=== PATIENT | male | born 1965 | race Caucasian/White ===

== ENCOUNTER → 2023-02-04 09:52 | Outpatient (CLI) | payer OTHER, SELFPAY ==
--- NOTE | 2023-02-04 | CA_ITS ---
FINAL REPORT CLINICAL HISTORY: bilateral edema, redness of bilateral lower legs with leathery flesh. Smoker, trophic nails, family hx-PAD, morbid obesity COMPARISON: None FINDINGS: DUPLEX VENOUS SONOGRAPHY OF THE BILATERAL LOWER EXTREMITIES Multiple transverse and longitudinal scans were performed of the femoropopliteal deep venous systems, with augmentation and compression maneuvers. HISTORY: Pain FINDINGS: Normal phasic flow was noted in the visualized deep venous systems. No intraluminal increased echogenicity is noted to suggest thrombus. There is normal compression and augmentation of the venous structures. No abnormal venous collaterals are seen. IMPRESSION: No evidence of deep venous thrombosis of the bilateral lower extremities. Reviewed, Interpreted and Dictated by Monica Edmond MD Transcribed by Cathi Casarez Authenticated and [facility]
== END ==
PROVIDERS: PCP Nurse Practitioner Family; Visit Provider Nurse Practitioner Family
DX: I87.2 Venous insufficiency (chronic) (peripheral) (principal)
CPT/HCPCS: 93970

== ENCOUNTER → 2023-07-03 12:22 | Outpatient (CLI) | payer OTHER, SELFPAY ==
--- NOTE | 2023-07-03 12:43 | XR_ITS ---
FINAL REPORT TECHNIQUE: Chest PA & Lateral CLINICAL HISTORY: smoker, dyspnea COMPARISON: None FINDINGS: 2 views of the chest were performed. The heart size is normal. The mediastinum is within normal limits. There is no acute cardiopulmonary process. There are no pleural effusions. There is no pneumothorax. The bony thorax appears intact. IMPRESSION: No acute cardiopulmonary process. Reviewed, Interpreted and Dictated by Ervin Guaman MD Transcribed by Rebecca Lopez Authenticated and [facility]
[2023-07-03 13:19] LABS: Basophils % 0.6 % (0.1-2.0); Eosinophils # 0.2 K/mm3 (0.0-0.4); Eosinophils % 3.1 % (0.1-12.0); Hematocrit 51.9 % (42.0-52.0); Hemoglobin 17.6 g/dL (14.1-18.0); Lymphocytes # 1.6 K/mm3 (0.7-4.5); Lymphocytes % 21.1 % (10-50); Mean Corpuscular Hemoglobin 31.7 pg (27.0-31.2); Mean Corpuscular Volume 93.2 fl (80-94); Mean Platelet Volume 10.1 fl (7.4-10.4); Monocytes # 0.4 K/mm3 (0.1-1.0); Monocytes % 5.8 % (1.7-9.3); Neutrophils # 5.3 K/mm3 (1.8-7.8); Neutrophils % 69.5 % (37.0-80.0); Platelet Count 129 K/mm3 (142-424); Red Blood Count 5.57 M/mm3 (4.60-6.20); Red Cell Distribution Width 14.3 % (11.5-17.5); White Blood Count 7.6 K/mm3 (4.8-10.8)
[2023-07-03 13:48] LABS: Alanine Aminotransferase 29 U/L (12-78); Albumin Level 4.1 g/dl (3.5-5.0); Alkaline Phosphatase 83 U/L (38-126); Aspartate Amino Transferase 28 U/L (17-59); Bilirubin,Direct 0.1 mg/dl (0.0-0.4); Bilirubin,Indirect 0.4 mg/dL (0.0-0.9); Bilirubin,Total 0.5 mg/dl (0.2-1.3); Bilirubin,Unconjugated 0.4 mg/dL (0.0-1.1); Blood Urea Nitrogen 10 mg/dl (9-20); Calcium 8.6 mg/dl (8.4-10.2); Chloride 102 mmol/L (98-107); Cholesterol 213 mg/dl (140-200); Estimated Glomerular Filt Rate 99 ml/min (>60); GFR (African American) 119 ML/MIN (>60); Glucose 81 mg/dl (74-100); Magnesium 1.8 mg/dl (1.6-2.3); Total Protein,Serum 7.4 g/dl (6.3-8.2); Triglycerides 171 mg/dl (30-150); VLDL Cholesterol 34 mg/dL (0-40)
[2023-07-03 13:50] LABS: Chol/HDL Ratio 5.6 (1-3.5); HDL Cholesterol 38 mg/dl (40-60); Potassium 4.4 mmoL/L (3.5-5.1); Sodium 136 mmol/L (136-145)
[2023-07-03 14:00] LABS: Direct LDL Cholesterol 145.52 mg/dL (100-129)
[2023-07-03 14:05] LABS: Free T4 (Free Thyroxine) 0.97 ng/dl (0.78-2.19)
[2023-07-03 14:06] LABS: 25-OH Vitamin D, Total 27.4 ng/mL (30-100)
[2023-07-03 14:20] LABS: Prostate Specific Ag Screen 0.4 ng/ml (0.0-4.0); Thyroid Stimulating Hormone 1.88 uIU/mL (0.465-4.68)
[2023-07-03 14:44] LABS: Anion Gap 9.4 mEq/L (5-15); Carbon Dioxide 29 mmol/L (22.0-30.0)
== END ==
PROVIDERS: PCP Nurse Practitioner Family; Visit Provider Internal Medicine
DX: I27.20 Pulmonary hypertension, unspecified (principal); I73.9 Peripheral vascular disease, unspecified; I87.2 Venous insufficiency (chronic) (peripheral); R06.00 Dyspnea, unspecified; R06.83 Snoring; Z12.5 Encounter for screening for malignant neoplasm of prostate; E55.9 Vitamin D deficiency, unspecified; Z68.41 Body mass index [BMI] 40.0-44.9, adult; F17.200 Nicotine dependence, unspecified, uncomplicated
CPT/HCPCS: 36415; 71046; 80048; 80061; 80076; 82306; 83735; 84439; 84443; 85025; G0103

== ENCOUNTER → 2023-07-15 11:01 | Outpatient (CLI) | payer OTHER, SELFPAY ==
--- NOTE | 2023-07-15 | CA_ITS ---
APPROVED REPORT Exam: Pharmacologic Technologist: Isabell Pelayo, Ht: 5 ft 10 in Wt: 323 lbs BSA: 2.56 m2 HR: 74 bpm BP: 111/70 mmHg Rhythm: NSR, RIGHT AXIS DEVIATION, POOR R WAVE Medical History Medications: SpirOnolactone,,,,, Furosemide,,,,, Allergies: No known drug allergies Stress Test Details Test: LEXISCAN HR Resting HR: 69 bpm Max Heart Rate (APMHR): 160 bpm Max HR Achieved: 90 bpm Target HR (85% APMHR): 136 bpm % of APMHR: 56 Recovery HR: 79 bpm BP Resting BP: 111/70 mmHg Max BP: 130/64 mmHg Recovery BP: 130.0/70.0 mmHg ECG Resting ECG: NSR, RIGHT AXIS DEVIATION, DELAYED R/S TRANSITION Stress ECG: NO SIGNIFICANT ST CHANGES Arrhythmia: NONE Clinical Exercise duration: 04:06 min Highest Stage Achieved: Stress ECG Conclusion PT HAD MILD SOA, HEAD AND STOMACH DISCOMFORT NO SIGNIFICANT ST CHANGES CONCLUSION: UNREMARKABLE LEXISCAN STRESS MYOVIEW IMAGES REPORTED SEPARATELY Test Summary REST 03:50 . . 69 . 111/ 70 . . Stage 1 01:00 . . 83 . . . . Stage 2 01:00 . . 85 . 112/ 64 . . Stage 3 01:00 . . 80 . . . . Stage 4 01:00 . . 78 . 130/ 64 . . Stage 4 01:06 . . 78 . 130/ 64 . Stop exercise at 04:06 RECOVERY 01:00 . . 82 . . . . RECOVERY 02:00 . . 79 . 126/ 71 . . RECOVERY 03:00 . . 79 . 130/ 70 . . RECOVERY 03:24 . . 79 . 130/ 70 . . Electronically signed by : Bonnie Gannon MD 07/16/2023 09:21:42
--- NOTE | 2023-07-15 11:01 | NM_ITS ---
APPROVED REPORT Exam: Nuclear Stress Test Indication: fatigue..high cholesterol..tobacco use Patient Location: Outpatient Stress Tech: Isabell Pelayo PA Tech:Dee Leon HUMZA RT(R)(N) Ht: 6 ft 0 in Wt: 323 lbs HR: 69 bpm BP: 111/70 mmHg BSA: 2.61 m2 Rhythm: NSR TID: 1.10 History: fatigue..high cholesterol..tobacco use Procedure: Patient received 0.4 mg of intravenous Lexiscan, resting heart rate 69 bpm, resting blood pressure 111/70 mmHg, with Lexiscan maximum heart rate achieved was 90 bpm which is 85 % of the maximum predicted heart rate and blood pressure was 130/64 mmHg. With Lexiscan, patient denied any complaint of chest pain. Cardiac Stress and Resting SPECT Images: Cardiac Stress and Resting SPECT images were obtained using technetium 99m Myoview 32.7 mCi stress and 10.98 mCi at rest. Technically difficult study due to soft tissue and diaphragmatic overlap with the cardiac borders. The overall radiotracer uptake in the resting and supine stress imaging is diminished. This may affect the diagnostic interpretation of the study findings. Resting and stress imaging in supine and prone positions demonstrate medium sized, mild, fixed perfusion defect in the inferior LV wall. This is no longer visualized with prone stress imaging. Findings are suggestive of soft tissue and diaphragmatic attenuation. Gated imaging demonstrates normal global and regional LV systolic function. LVEF is calculated at 56%. Conclusion: Technically difficult study. Soft tissue and diaphragmatic attenuation is present. No definite evidence of fixed or reversible perfusion defects. Gated imaging demonstrates normal global and regional LV systolic function. LVEF is calculated at 56%. Electronically signed by : Bonnie Gannon MD 07/16/2023 09:24:29
--- NOTE | 2023-07-15 12:37 | CA_ITS ---
APPROVED REPORT EXAM: Comprehensive 2D, Doppler, and color-flow Echocardiogram Heel Turner: Asiya Moore RT(R) Ht: 6 ft 0 in Wt: 323lbs BSA: 2.61 BP: 133/85 mmHg Indications: Abn EKG, smoker, CEBALLOS, PHTN, morbid obesity Echo Enhancing Agent Indication: Endocardial border delineation Agent(s) / Amount(s) Used: Definity 2 cc 2D Dimensions LA Volume 27.50 mL LA Volume Index 10.54 mL/m2 (M/F) 16-34 M-Mode Dimensions RVDd 2.54 cm (0.9-2.6) LA Diam 4.00 cm (1.9-4.0) LVDd 5.21 cm (3.5-5.7) LVDs 3.85 cm (3.5-5.7) IVSd 1.06 cm (0.6-1.1) PWd 0.97 cm (0.6-1.1) EF (Teich) 50.90% FS 26.10% EDV (Teich) 130.10 mL ESV (Teich) 63.90 mL LV Diastology E Decel Time 193 (160-240 msec) E/A Ratio 1.3 Mitral Valve MV E Max Lennox. 87.0 (40-130 cm/s) MV A Velocity 69.0 (40-130 cm/s) E/A Ratio 1.26 MV PHT 57.0 ms Left Ventricle The left ventricle is normal size. The left ventricular systolic function is normal. The left ventricular ejection fraction is within the normal range. There is normal left ventricular wall thickness. There is normal LV segmental wall motion. The left ventricular diastolic function is normal. No left ventricle thrombus noted on this study. LVEF is 55%. Right Ventricle The right ventricle is mildly to moderately dilated. Right ventricle is mildly hypokinetic. Atria The left atrium size is normal. The right atrium size is normal. The interatrial septum is not well-visualized. Aortic Valve The aortic valve is mildly thickened. There is no aortic valvular stenosis. No aortic regurgitation is present. Mitral Valve The mitral valve leaflets are mildly thickened. No evidence of mitral valve stenosis. Trace mitral regurgitation. Tricuspid Valve The tricuspid valve leaflets are thin and pliable. Trace tricuspid regurgitation. There is insufficient TR jet to estimate RVSP. Pulmonic Valve The pulmonary valve is normal in structure. Trace pulmonic regurgitation. Great Vessels The aortic root is normal in size. The ascending aorta is not well-visualized. The IVC is not well-visualized. Pericardium There is no pericardial effusion. Other Information Study Quality: Technically Difficult. Technically limited study due to lung disease. Conclusion Technically difficult study due to poor acoustic windows. Normal LV systolic function. Mild to moderate RV dilation with mild reduction in RV function. No significant valvular stenosis or regurgitation. Electronically signed by : Bonnie Gannon MD 07/16/2023 09:20:11
[2023-07-15] MEDS: DEFINITY US ECHO CONTRAST 2ML INJ 2 MG IV (13:13)
[2023-07-15] MEDS: REGADENOSON 0.4MG/5ML SYRINGE 0.400000000000000022 MG IV (13:32)
[2023-07-15] MEDS: ISOTOPE MYOVIEW (PER STUDY) 1 DOSE IV (13:33)
[2023-07-15] MEDS: SODIUM CHLORIDE 0.9% 10ML SYR (RAD ONLY) 10 ML IV ×2 (13:33)
== END ==
LOC: RAD 11:01
PROVIDERS: PCP Nurse Practitioner Family; Visit Provider Internal Medicine
DX: R94.31 Abnormal electrocardiogram [ECG] [EKG] (principal); R06.00 Dyspnea, unspecified; I27.20 Pulmonary hypertension, unspecified; I73.9 Peripheral vascular disease, unspecified; I87.2 Venous insufficiency (chronic) (peripheral); R06.83 Snoring; F17.200 Nicotine dependence, unspecified, uncomplicated
CPT/HCPCS: 78452; 93017; 93018; 93306; A9502; J2785; Q9957

== ENCOUNTER → 2023-08-24 13:29 | Outpatient (CLI) | payer OTHER, SELFPAY | LOC: SL 13:31 | PROVIDERS: PCP Nurse Practitioner Family; Visit Provider Nurse Practitioner Family | DX: G47.33 Obstructive sleep apnea (adult) (pediatric) (principal); G47.36 Sleep related hypoventilation in conditions classified elsewhere; R06.00 Dyspnea, unspecified; R06.83 Snoring; R53.83 Other fatigue; I27.20 Pulmonary hypertension, unspecified | CPT/HCPCS: G0399 ==

== ENCOUNTER 2023-11-10 09:37 | Outpatient (CLI) | payer OTHER, SELFPAY ==
--- NOTE | 2023-11-10 09:41 | US_ITS ---
FINAL REPORT CLINICAL HISTORY: venous insufficiency, claudication, darkened discoloration of bilateral calves and shins COMPARISON: None FINDINGS: ANKLE-BRACHIAL PRESSURE INDICES Pressure indices are as follows: RIGHT LOWER EXTREMITY: Ankle-brachial pressure index: 1.2 Comments: Normal LEFT LOWER EXTREMITY: Ankle-brachial pressure index: 1.14 Comments: Normal CONCLUSION: No evidence of significant obstructive peripheral vascular disease of the lower extremities Reviewed, Interpreted and Dictated by Ervin Guaman MD Transcribed by Rebecca Lopez Authenticated and [facility]
== END 2023-11-10 23:59 | disposition home or self-care (01) ==
LOC: RT 09:38
PROVIDERS: PCP Nurse Practitioner Family; Visit Provider Physician Assistant
DX: R06.09 Other forms of dyspnea (principal); L81.9 Disorder of pigmentation, unspecified; I87.2 Venous insufficiency (chronic) (peripheral); I73.9 Peripheral vascular disease, unspecified; R94.31 Abnormal electrocardiogram [ECG] [EKG]; R06.83 Snoring; I27.20 Pulmonary hypertension, unspecified; F17.200 Nicotine dependence, unspecified, uncomplicated; Z12.5 Encounter for screening for malignant neoplasm of prostate
CPT/HCPCS: 93923

== ENCOUNTER 2023-11-11 12:57 | Outpatient (CLI) | payer OTHER, SELFPAY ==
[2023-11-11 13:40] VITALS: PULSE 91; PULSE 93
[2023-11-11] MEDS: ALBUTEROL 0.083% 2.5 MG/3 ML NEB IH (13:40)
== END 2023-11-11 23:59 | disposition home or self-care (01) ==
LOC: RT 12:58
PROVIDERS: PCP Nurse Practitioner Family; Visit Provider Internal Medicine Pulmonary Disease
DX: R06.09 Other forms of dyspnea (principal)
CPT/HCPCS: 94060; 94618; 94640; 94726; 94729

== ENCOUNTER 2023-12-01 14:47 | Outpatient (CLI) | payer OTHER, SELFPAY ==
--- NOTE | 2023-12-01 14:48 | CT_ITS ---
FINAL REPORT TECHNIQUE: Thin section axial images were obtained from the lung apices to the upper abdomen by computed tomography. Reformatted images were obtained and reviewed. This study was performed with techniques to keep radiation doses al low as reasonably achievable (ALARA). Individualized dose reduction techniques using automated exposure control or adjustment of mA and/or kV according to the patient's size were employed. CLINICAL HISTORY: lung cancer screening CURRENT SMOKER 1PPD X40 YEARS COMPARISON: None FINDINGS: CHEST CT LOW DOSE 59-year-old male, current smoker, [id number] history. CTDI vol (mGy): 2.9 DLP (mGy-cm): 105.51 There is no axillary adenopathy. There are several small mediastinal nodes present, nonspecific. Coronary artery calcifications are identified. The heart is normal in size. There is no pericardial or pleural effusion. Lung window images demonstrate a 6 mm nodule near the minor fissure best seen on image #51. There is a calcified granuloma present in the left lower lobe. Limited images of the upper abdomen are unremarkable. IMPRESSION: Lung-RADS category 3. Recommend 6 month follow up low dose chest CT. Reviewed, Interpreted and Dictated by Satish Brenner III, MD Transcribed by Rebecca Lopez Authenticated and [facility]
== END 2023-12-01 23:59 | disposition home or self-care (01) ==
LOC: RAD 14:48
PROVIDERS: PCP Nurse Practitioner Family; Visit Provider Internal Medicine Pulmonary Disease
DX: F17.210 Nicotine dependence, cigarettes, uncomplicated (principal); Z12.2 Encounter for screening for malignant neoplasm of respiratory organs
CPT/HCPCS: 71271

== ENCOUNTER 2024-06-22 12:56 | Outpatient (CLI) | payer OTHER, SELFPAY ==
--- NOTE | 2024-06-22 13:30 | CA_ITS ---
APPROVED REPORT EXAM: Limited 2D Echocardiogram with contrast Insulation Helper: Stella Bass RCS, RVS Ht: 6 ft 0 in Wt: 360lbs BSA: 2.74 BP: 133/60 mmHg Echo Enhancing Agent Indication: Rule Out Septal Defect Agent(s) / Amount(s) Used: Agitated Saline cc Comments: Negative: TDS due to body habitus Other Information Study Quality: Fair Conclusion This is a limited TTE to evaluate for interatrial shunt. Limited windows were obtained. Agitated saline was administered at rest, as well as after significant Valsalva maneuvers. Agitated saline administration demonstrates no evidence of interatrial shunt. Electronically signed by : Bonnie Gannon MD 06/23/2024 11:31:35
[2024-06-22 14:00] VITALS: PULSE 79; PULSE 80
[2024-06-22] MEDS: ALBUTEROL 0.083% 2.5 MG/3 ML NEB IH (14:00)
--- NOTE | 2024-06-22 14:42 | CT_ITS ---
FINAL REPORT TECHNIQUE: Axial CT images were performed from the lung apices through the upper abdomen. Coronal reformats were submitted. This study was performed with techniques to keep radiation doses as low as reasonably achievable (ALARA). Individualized dose reduction techniques using automated exposure control or adjustment of mA and/or kV according to the patient's size were employed. CLINICAL HISTORY: 6 mth F/U COMPARISON: 12/01/2023 FINDINGS: There is no axillary adenopathy. There are several borderline sized mediastinal nodes. No hilar mass or adenopathy is identified. Heart size is normal. There is no pericardial or pleural effusion. Limited images of the upper abdomen are unremarkable. There is mild emphysema and mild pulmonary scarring. There is a 6 mm nodule at the minor fissure well-seen on series 2, image 55. This is stable since prior. There is a calcified granuloma in the left lower lobe. No new mass or nodule is identified. IMPRESSION: Stable nodule at the minor fissure. Recommend follow-up chest screening in 12 months. Reviewed, Interpreted and Dictated by Satish Brenner III, MD Transcribed by Brittney Horn Authenticated and [facility]
== END 2024-06-22 23:59 | disposition home or self-care (01) ==
LOC: RT 12:56
PROVIDERS: PCP Nurse Practitioner Family; Visit Provider Internal Medicine Pulmonary Disease
DX: R06.09 Other forms of dyspnea (principal); R91.8 Other nonspecific abnormal finding of lung field; Z99.81 Dependence on supplemental oxygen
CPT/HCPCS: 71250; 93308; 94060; 94618; 94640; 94726; 94729; J7613

== ENCOUNTER 2024-12-15 13:30 | Outpatient (CLI) | payer OTHER, SELFPAY | END 2024-12-15 23:59 | disposition home or self-care (01) | LOC: LAB.DROPOF 12-16 13:23 | PROVIDERS: PCP Nurse Practitioner; Visit Provider Nurse Practitioner | DX: B35.1 Tinea unguium (principal) | CPT/HCPCS: 87102; 87206; 87220 ==

== ENCOUNTER 2024-12-28 12:57 | Outpatient (CLI) | payer OTHER, SELFPAY ==
--- OUTSIDE RECORDS SUMMARY | 2024-12-28 13:00 | XMS_ITS | Continuity of Care Document ---
Author Organization LINDA Dawna Mccoy [facility] Address [address] [place] [address] Care Team Providers Care Jewel Diameter Gauger Name Role Phone SHAAN DONNA Primary Care Provider [phone] Assessment No assessment recorded. Plan of Treatment Reminders Order Date Submit Date Provider Last Modified By Organization Details Last Modified Time Details Appointments None recorded. Lab CMP, serum or plasma 2024 025 JOANNE [facility], [address], [place], [place], [address], 5 12:12:43 CBC w/ auto diff 2024 025 JOANNE [facility], [address], [place] [address], [place], [address], 5 12:12:43 TSH + free T4, serum 2024 025 JOANNE [facility], [address], [place] [address], [place], [address], 5 12:12:42 BNP (B-type natriuretic peptide), serum or plasma 2024 025 JOANNE [facility], [address], [place] [address], [place], [address], 5 12:12:45 lipid panel, serum 2024 025 JOANNE [facility], [address], [place] [address], [place], [address], 5 12:12:44 HbA1c (hemoglobin A1c), blood 2024 025 [place] [facility], [address], [address], [place], [address], 5 12:12:44 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 Surgeries None recorded. Imaging None recorded. Medication Orders None recorded. Patient TargetsNo targets recorded. Patient Instructions Encounter Date Encounter Id Patient Instructions Last Modified By Organization Details Last Modified Time 11/07/2024 [id number] body mass index: care instructions [facility] Not available 11/07/2024 08:37:30 learning about healthy [facility] Not available 11/07/2024 08:37:30 Reason for Referral Wolf Hunter Referral for Onyc homycosis of toenails Referring Physician: Donna Ferrell, Family Medicine, Encounter Date: 11/07/2024 Problems Name Problem SNOMED Code Status Onset Date Resolution Date Notes Provider Name and Address Organization Details Recorded Time Venous stasis edema of bilateral lower limbs 0317977435945 9106 Active 2022 Regis Molina APRN [address], [place], [address] , [place] - [facility] 3 14:55:49 Pain in both feet 9271958210426 9102 Active 2022 Regis Molina APRN [address], [place], [address] , [place] - [facility] 3 15:05:36 Morbid obesity 582659860 Active 2022 Donna Ferrell APRN [address], [place], [address] , [place] - [facility] 5 08:36:09 Venous insufficie ncy of leg 224215901 Active 2022 Regis Molina APRN [address], [place], [address] , [place] - [facility] 3 11:21:02 Chronic obstructiv e pulmonary disease 84650699 Active Ana medina, [facility] 4 16:50:01 [facility] ap[facility] 02440184 [facility] 4 16:53:12 Edema of lower extremity 976732953 Active Donna Ferrell, [employer] [address], [place], [place], [address] [place] [address] , [facility] 5 08:36:06 Hyperchole sterolemia 16628155 Active Donna Ferrell, [employer] [address], [place], [place], [address] [place] [address] , [facility] 5 08:36:02 Tobacco dependence caused by cigarettes 6317351819152 9107 [facility] 5 08:04:56 Peripheral venous insufficie ncy 37295800 Active Donna Ferrell, [employer] [address], [place], [place], [address] [place] [address] , [facility] 5 08:36:15 Increased blood pressure 63063301 [facility] 5 08:04:56 Hemosidero sis 98719405 [facility] 5 08:04:56 Problem Notes None recorded. Procedures Surgical History Date Name Laterality Status Provider Name and Address Organization Details Recorded Time procedure on ligament completed Ana Ayala [facility] 01/29/2023 14:07:17 Imaging Results None recorded. Procedure Notes None recorded. Medical Equipment None Reported. Allergies No known drug allergies Medications Name Sig Start Date Stop Date Status Note LastModified by Organization Details LastModified Time furosemide 40 mg tablet Take 1 tablet every day by oral route. active Not Available Not Available No t Available atorvastati n 40 mg tablet Take 1 tablet every day by oral route. active Not Available Not Available No t Available nicotine 21 mg/24 hr daily transdermal patch APPLY 1 PATCH TO SKIN DIRECTED EVERY 24 HOURS. START WITH 21MG FOR 14 DAYS. 11/07 completed Not Available Not Available Not Available naproxen 500 mg tablet Take 1 tablet twice a day by oral route as directed for 14 days. 07/03 completed Not Available Not Available Not Available spironolact one 50 mg tablet Take 1 tablet every day by oral route. active Not Available Not Available No t Available Ventolin HFA 90 mcg/actuati on aerosol inhaler INHALE 2 PUFFS BY MOUTH FOUR TIMES DAILY NEEDED FOR SHORTNESS OF BREATH OR WHEEZING active Not Available Not Available No t Available neomycin-po lymyxin-hyd rocort 3.5 mg-10,000 unit/mL-1 % ear drops,susp SHAKE LIQUID AND INSTILL 4 DROPS TO AFFECTED EAR THREE TIMES DAILY 11/07 completed Not Available Not Available Not Available Stiolto Respimat 2.5 mcg-2.5 mcg/actuati on solution for inhalation (2.5-2.5 mcg/actua t) 11/07 completed Not Available Not Available Not Available oxygen 2 liters at bedtime active Not Available Not Available No t Available Vitals Date Recorded Body height Body mass index (BMI) Body weight Heart rate Oxygen saturation Oxygen saturation in Arterial blood by Pulse oximetry Respiratory rate Systolic blood pressure Diastolic blood pressure Provider Name and Address Organization Details Last Updated DateTime 5 180.34 cm 43 kg/m2 989378. 45 g 84 /min 94 % 94 % 18 /min 118 mm[Hg] 72 mm[Hg] Ana Ayala [place] - [facility] 5 08:10:07 Social History Question Answer Notes LastModified by Organizat ion Details LastModified Time Tobacco Smoking Status Current Every Day Smoker Ana Ayala null, [place] - [facility] 01/29/2023 14:06:08 Do You Have An Advance Directive? No Information not available 01/29/2023 Are You Blind Or Do You Have Difficulty Seeing? No Information not available 01/29/2023 What Is Your Level Of Caffeine Consumption? Moderate Information not available 01/29/2023 In The 14 Days Before Symptom Onset, Have You Had Close Contact With A Laboratory-confir med COVID-19 While That Case Was Ill? No Information not available 01/29/2023 In The 14 Days Before Symptom Onset, Have You Had Close Contact With A Person Who Is Under Investigation For COVID-19 While That Person Was Ill? No Information not available 01/29/2023 Have You Been To An Area Known To Be High Risk For COVID-19? No Information not available 01/29/2023 Are You Deaf Or Do You Have Serious Difficulty Hearing? No Information not available 01/29/2023 What Type Of Diet Are You Following? REGULAR Information not available 01/29/2023 Have You Processed Blood Or Body Fluids From An Ebola Virus Disease Patient Without Appropriate PPE? No Information not available 01/29/2023 Do You Reside In Or Have You Traveled To An Area Where Ebola Virus Transmission Is Active? No Information not available 01/29/2023 What Is The Highest Grade Or Level Of School You Have Completed Or The Highest Degree You Have Received? [id number] Information not available 01/29/2023 Have There Been Any Changes To Your Family Or Social Situation? No Information no t available 01/29/2023 What Is The Fluoride Status Of Your Home? Fluoridated Information not available 01/29/2023 Have You Recently Or Are You Planning To Travel To An Area With Zika Virus? No Information not available 01/29/2023 Do You Have A Medical Power Of Lead Athlete? No Information not available 01/29/2023 What Was The Date Of Your Most Recent Tobacco Screening? 11/07/2024 Information not available 11/07/2024 What Is Your Relationship Status? Information not available 01/29/2023 Do You Have Smoke And Carbon Monoxide Detectors In Your Home? Yes Information not available 01/29/2023 At What Age Did You Start Smoking Tobacco? 11 Information not available 01/29/2023 Are You Passively Exposed To Smoke? Yes Information no t available 01/29/2023 How Much Tobacco Do You Smoke? 2 PPD Information not available 01/29/2023 Has Tobacco Cessation Counseling Been Provided? Yes Information not available 01/29/2023 On What Date Was Tobacco Cessation Counseling Provided? 11/07/2024 Information not available 11/07/2024 Do You Have Difficulty Walking Or Climbing Stairs? No Information not available 01/29/2023 Sex: Male Functional Status Question Answer Note LastModified by Organizat ion Details LastModified Time How many times per week do you consume alcohol? Less than 1 time per week Information not available 01/29/2023 Do you use any illicit or recreational drugs? No Information not available 01/29/2023 Do you or have you ever used any other forms of tobacco or nicotine? No Information not available 01/29/2023 What is your level of alcohol consumption? Occasional Information not available 01/29/2023 Are you currently employed? No Information not available 01/29/2023 Do you have transportation difficulties? No Information not available 01/29/2023 Are you able to walk? YESWOREST Information not available 01/29/2023 Do you have difficulty doing errands alone? No Information not available 01/29/2023 Are you able to care for yourself? Yes Information n ot available 01/29/2023 Do you have difficulty dressing or bathing? No Information not available 01/29/2023 Mental Status Question Answer Note LastModified by Organization D etails LastModified Time Do you have difficulty concentrating, remembering or making decisions? No Information no t available 01/29/2023 Family History Relationship Description Onset Age of this Age Resolved Age Notes LastModified by Organization Details LastModified Time Mother Neoplasm of kidney cbuckler Not available 2022 14:04:32 Father Malignant tumor of stomach cbuckler Not available 2022 14:04:51 Sister Myocardial infarction cbuckler Not available 01/29 14:05:08 Medical History Condition Response Pancreatitis N Coronary Artery Disease N Other N Gout N Atrial Fibrillation N congenital heart disease N Blood Diseases N Kidney Stones N Hyperthyroidism N Blood Transfusion N Rheumatoid arthritis N Erectile Dysfunction N amputation N Colonoscopy N Skin Lesions N COPD N Depression N Pneumonia N Incontinence N Murmur N Edema N Alzheimer's Disease N Migraine Headaches N Tobacco Abuse N Anxiety Disorder N Hemorrhoids N Muscle, Joint, or Bone Problems N Obesity N Vision or Eye Problems N Arthritis N Restless Leg Syndrome N Polyps N Infertility N Mental Disorder N Carpal Tunnel N Acid Reflux (GERD) N Cancer N Varicosities N Stroke N Tendonitis N Crohn's Disease N Hypercholesterolemia N Skin Cancer N Headaches N Fibromyalgia N Anal Fissure N Irritable Bowel Syndrome N Kidney Disease N Heart Problems N Ear or Hearing Problems N Hospitalizations N Gallstones N Kidney or Bladder Problems N Goiter N Acne N Skin Problems N Eating Disorder N Yeung's Esophagus N Hypertriglyceridemia N MRSA exposure N Constipation N Embolism N Vitamin B12 Deficiency N Deviated Septum N Tuberculosis N AIDS/HIV N Myocardial Infarction N Asthma N Mitral Valve Disorders N Vertigo N Hepatitis N Thyroid Cancer N Neuropathy N Pulmonary Embolism N COVID 19 N History of DVT N Herniated Disc N Chronic Ear Infections N Chicken Pox N Autism Spectrum Disorder (ASD) N Von Willebrands Disease N Thrombophilias N Breast Cancer N Hernia N Plantar Fasciitis N Hospital Admission Other Than N Lung Disease N Hypothyroidism N Defects or Inherited Disease N Developmental or Behavioral Disorders N Breast Problem N Difficulty Swallowing N Ovarian Cyst N Anesthesia Complications N Testosterone Deficiency N Meniere's disease N Head Injury/Concussion N Interstitial Cystitis N Congenital Anomalies N Hypoglycemia N Blood clot N Vitamin D Deficiency N Cellulitis N Endometriosis N Fracture N Bladder or Kidney Problems N Colorectal Cancer N Liver Disease N Panic Disorder N Schizophrenia N Concussion N Spina Bifida N Allergies/Hayfever N Osteoarthritis N Parkinson's Disease N Disc Protrusion N STI N Esophagitis N Angina N Thyroid Problems N GI Problems N ADD/ADHD N Anemia N Multiple Sclerosis N Abnormal PAP N Lumbago N Mental Illness N Psychiatric Illness N Diabetes N Ovarian Cancer N Bedwetting N Degenerative Disc Disease N Seizures/Epilepsy N Congestive Heart Failure (CHF) N Hyperlipidemia N Syncope N Insomnia N Eczema N Abuse/Domestic Violence N Attention Deficient Disorder N Diverticulitis N Dementia N Ulcerative colitis N Cerebrovascular Disease N Depression N Guillain-Hospers N Sleep Apnea N Aneurysm N Bronchitis N Heart Disease N Suicidal Ideation N Pre-Eclampsia N Hypertension N Osteoporosis N Past Encounters Encounter ID Performer Location Encounter Start Date Encounter Closed Date Diagnosis/Indication Diagnosis SNOMED-CT Code Diagnosis ICD10 Code Diagnosis Note [id number] Donna Ferrell APRN [address] [address] 11/07/2024 07:56:47 11/07/2024 08:53:02 Morbid obesity 848939559 E66.01 Severe obesity 468164834 1 9104 E66.813 E66.01 Z68.41 43 Peripheral venous insufficiency 44879211 I87.2 Hypercholesterolemia 136 27271 E78.00 Edema of l ower extremity 320325915 R60.0 Onychomyco sis of toenails 735496188 B35.1 Health Concerns Section Related Observation LastModified by Organization Detai ls LastModified Time None Recorded Concern Status LastModified by Organization Details LastModified Time None Recorded Payers Encounter Date Sequence Insurance Name Policy Number Policy Henry Covered Member ID Henry Member ID Guarantor Name 11/07/2024 1 [employer] [facility] (MEDICAID HMO) Santhosh Gutierrez [id number] Santhosh Gutierrez Notes Date Note Type Note Provider Name and Address Organization Details Recorded Time 11/07/2024 text/html 59 yr old male presents for lab work. hx of edema in legs,hyperchole sterolemia,trey pheral venous insufficiency,m orbid obesity Donna Ferrell, [employer] [address], [place], [address], [place] - [facility] 11/07/2024 09:25:46
--- OUTSIDE RECORDS SUMMARY | 2024-12-28 13:00 | XMS_ITS | Data Portability ---
Author Organization [facility] Address [address] [place] [address] Care Team Providers Care Light Fixture Servicer Name Role Phone DONNA FLORES Primary Care Provider Assessment Encounter Date Assessment Date Assessment LastModified by Organization Details LastModified Time 01/29/2023 01/29/2023 Venous Insufficiency - Discussed conservative therapy (regular exercise, compression stockings, massage therapy) and symptom management - prescribed short term dose of naproxen for pain control. Discussed with patient possible need to readdress pain management plan after ascertaining kidney and liver status as well as use of nonpharmacologic treatments. - Diuretics held due to generally ineffective and relatively contraindicated - Leg elevation TID for 30 minutes - Compression stockings - serology ordered to ascertain etiology of venous insufficiency. Also, patient has not had any lab work or seen a physician in over 15 years - bilateral lower extremity venous duplex ordered to confirm diagnosis and ascertain severity Morbid Obesity -BMI 45.7 diagnostic for morbid obesity -healthy diet, exercise, and weight loss discussed -education information regarding healthy weight given [email or web address] Not available 01/30/2023 00:21:06 Plan of Treatment Reminders Order Date Submit Date Provider Last Modified By Organization Details Last Modified Time Details Appointments None recorded. Lab CMP, serum or plasma 2024 025 JOANNE [facility], [address], [place], [address], 5 12:12:43 CBC w/ auto diff 2024 025 JOANNE [facility], [address], [place], [address], 5 12:12:43 TSH + free T4, serum 2024 025 JOANNE [facility], [address], [address], [place], [address], 5 12:12:42 BNP (B-type natriuretic peptide), serum or plasma 2024 025 JOANNE [facility], [address], [address], [place], [address], 5 12:12:45 lipid panel, serum 2024 025 JOANNE [facility], [address], [address], [place], [address], 5 12:12:44 HbA1c (hemoglobin A1c), blood 2024 025 JOANNE [facility], [address], [address], [place], [address], 5 12:12:44 CMP, serum or plasma 2022 023 JOANNE [facility], [address], [address], [place], [address], 3 08:11:42 CBC w/ auto diff 2022 023 JOANNE [facility], [address], [address], [place], [address], 3 08:11:41 PT/PTT, plasma 2022 023 JOANNE [facility], [address], [address], [place], [address], 3 08:11:43 TSH, ultra-sensi tive, serum 2022 023 JOANNE [facility], [address], [address], [place], [address], 3 08:11:45 lipid panel, serum 2022 023 JOANNE [facility], [address], [address], [place], [address], 3 08:11:43 CK (creatine kinase), total, serum 2022 023 JOANNE [facility], [address], [address], [place], [address], 3 08:11:44 HbA1c (hemoglobin A1c), blood 2022 023 JOANNE [facility], [address], [address], [place], [address], 3 08:11:45 Referral technical recruiter referral 2024 025 [place] Belinda GARCIA, [address] [place] [address] [address], [place], [address], 5 15:12:04 cardiologis t referral - seeing pt today 2022 023 [place] Zelalem Harper MD, [address] [place] [address] [address] , [place], [address], 3 13:47:00 Procedures None recorded. Surgeries None recorded. Imaging electrocard iogram 2022 023 [facility], [address] [place] [address], [place], [address], 3 10:32:13 US, duplex, venous, lower extremity, complete - bilateral 2022 023 [facility] (X-[facility]), [address] [place] [address] [address], [place], [address], 3 13:24:51 Medication Orders neomycin-po lymyxin-hyd rocort 3.5 mg-10,000 unit/mL-1 % ear drops,susp 2023 025 JOANNE [id number], [address] [facility] [address] [place], [id number], 5 08:05:24 naproxen 500 mg tablet 2022 023 migdalia [facility] #[id number], [address] [facility] [address] [place], [id number], 10:07:42 Patient TargetsNo targets recorded. Patient Instructions Encounter Date Encounter Id Patient Instructions Last Modified By Organization Details Last Modified Time 01/29/2023 [id number] body mass index: care instructions [email or web address] Not available 01/29/2023 15:06:13 learning about healthy weight [email or web address] Not available 01/29/2023 15:06:13 - Discussed conservative therapy (regular exercise, compression stockings, massage therapy) and symptom management - need for labs and US to evaluate his overall health as well as the cause and severity of venous insufficiency - Naproxen, its side effects, and risk - will call with labs and US results CED [email or web address] Not available 01/30/2023 00:22:59 11/07/2024 [id number] body mass index: care instructions [email or web address] Not available 11/07/2024 08:37:30 learning about healthy weight [email or web address] Not available 11/07/2024 08:37:30 Reason for Referral [employer] [place] Referral for Pa in in both feet seeing pt today Referring Physician: [facility], Encounter Date: 07/03/2023 Senior Education Specialist Referral for Onyc homycosis of toenails Referring Physician: [facility], Encounter Date: 11/07/2024 Results Created Date Observation Date Name Description Value Unit Range Abnormal Flag Note LastModifiedBy Organization Detail LastModifiedTime 01/30/2001/30/2023 CBC WITH DIFFE RENTI AL/PL ATELE T WBC 7.3 x10e3 /uL 3.4-10 .8 Not Available [facility] ([facility] [place] [facility] [address] [facility], [place], [address], 01/30/2023 08:11:41 01/30/2001/30/2023 CBC WITH DIFFE RENTI AL/PL ATELE T RBC 5.88 x10e6 /uL 4.14-5 .80 above high normal Not Available [facility] ([facility] [address] [facility], [place], [address], 01/30/2023 08:11:41 01/30/20 23 01/30/2023 CBC WITH DIFFE RENTI AL/PL ATELE T hemoglobin 17.4 g/dL 13.0-1 7.7 Not Available [facility] ([facility]) [address] [facility], [place], [address], 01/30/2023 08:11:41 01/30/20 23 01/30/2023 CBC WITH DIFFE RENTI AL/PL ATELE T hematocrit 53.1 % 37.5-5 1.0 above high normal Not Available [facility] ([facility]) [address] [place], [address], 01/30/2023 08:11:41 01/30/20 23 01/30/2023 CBC WITH DIFFE RENTI AL/PL ATELE T MCV 90 fL 79-97 Not Available [facility] ([facility]) [address] [place], [address], 01/30/2023 08:11:41 01/30/2001/30/2023 CBC WITH DIFFE RENTI AL/PL ATELE T MCH 29.6 pg 26.6-3 3.0 Not Available [facility] ([facility]) [address] [place], [address], 01/30/2023 08:11:41 01/30/20 23 01/30/2023 CBC WITH DIFFE RENTI AL/PL ATELE T MCHC 32.8 g/dL 31.5-3 5.7 Not Available [facility] ([facility] [address] [facility], [place], [address], 01/30/2023 08:11:41 01/30/20 23 01/30/2023 CBC WITH DIFFE RENTI AL/PL ATELE T RDW 13.4 % 11.6-1 5.4 Not Available [facility] ([facility] [address] [facility], [place], [address], 01/30/2023 08:11:41 01/30/20 23 01/30/2023 CBC WITH DIFFE RENTI AL/PL ATELE T platelets 150 x10e3 /uL 150-45 0 Not Available [facility] ([facility] [place] [facility] [address] [facility], [place], [address], 01/30/2023 08:11:41 01/30/20 23 01/30/2023 CBC WITH DIFFE RENTI AL/PL ATELE T neutrophils 67 % not estab. Not Available [facility] ([facility] [address] [facility], [place], [address], 01/30/2023 08:11:41 01/30/20 23 01/30/2023 CBC WITH DIFFE RENTI AL/PL ATELE T lymphs 21 % not estab. Not Available [facility] ([facility] [address] [facility], [place], [address], 01/30/2023 08:11:41 01/30/20 23 01/30/2023 CBC WITH DIFFE RENTI AL/PL ATELE T monocytes 8 % not estab. Not Available [facility] ([facility] [address] [facility], [place], [address], 01/30/2023 08:11:41 01/30/20 23 01/30/2023 CBC WITH DIFFE RENTI AL/PL ATELE T eos 3 % not estab. Not Available [facility] ([facility] [place] [facility] [address] [facility], [place], [address], 01/30/2023 08:11:41 01/30/20 23 01/30/2023 CBC WITH DIFFE RENTI AL/PL ATELE T basos 1 % not estab. Not Available [facility] ([facility] [place] [facility] [address] [place], [address], 01/30/2023 08:11:41 01/30/20 23 01/30/2023 CBC WITH DIFFE RENTI AL/PL ATELE T immature cells ORDNANCE OFFICER Not Available [facility] ([facility] [place] [facility]) [address] [place], [address], 01/30/2023 08:11:41 01/30/20 23 01/30/2023 CBC WITH DIFFE RENTI AL/PL ATELE T neutrophils (absolute) 4.9 x10e3 /uL 1.4-7. 0 Not Available [facility] ([facility] [place] [facility] [address] [place], [address], 01/30/2023 08:11:41 01/30/20 23 01/30/2023 CBC WITH DIFFE RENTI AL/PL ATELE T lymphs (absolute) 1.5 x10e3 /uL 0.7-3. 1 Not Available [facility] ([facility] [place] [facility]) [address] [place], [address], 01/30/2023 08:11:41 01/30/20 23 01/30/2023 CBC WITH DIFFE RENTI AL/PL ATELE T monocytes(ab solute) 0.6 x10e3 /uL 0.1-0. 9 Not Available [facility] ([facility] [place] [facility] [address] [place], [address], 01/30/2023 08:11:41 01/30/20 23 01/30/2023 CBC WITH DIFFE RENTI AL/PL ATELE T eos (absolute) 0.2 x10e3 /uL 0.0-0. 4 Not Available [facility] ([facility] [address] [place], [address], 01/30/2023 08:11:41 01/30/20 23 01/30/2023 CBC WITH DIFFE RENTI AL/PL ATELE T baso (absolute) 0.1 x10e3 /uL 0.0-0. 2 Not Available [facility] ([facility] [place] [facility] [address] [facility], [place], [address], 01/30/2023 08:11:41 01/30/20 23 01/30/2023 CBC WITH DIFFE RENTI AL/PL ATELE T immature granulocytes 0 % not estab. Not Available [facility] ([facility] [place] [facility] [address] [facility], [place], [address], 01/30/2023 08:11:41 01/30/20 23 01/30/2023 CBC WITH DIFFE RENTI AL/PL ATELE T immature grans (abs) 0.0 x10e3 /uL 0.0-0. 1 Not Available [facility] ([facility] [place] [facility] [address] [facility], [place], [address], 01/30/2023 08:11:41 01/30/20 23 01/30/2023 CBC WITH DIFFE RENTI AL/PL ATELE T NRBC ORDNANCE OFFICER Not Available [facility] ([facility] [place] [place] [facility]) [address] [facility], [place], [address], 01/30/2023 08:11:41 01/30/20 23 01/30/2023 CBC WITH DIFFE RENTI AL/PL ATELE T hematology comments: ORDNANCE OFFICER Not Available [facility] ([facility] [place] [place] [facility]) [address] [facility], [place], [address], 01/30/2023 08:11:41 01/30/20 23 01/30/2023 COMP. METAB OLIC PANEL (14) glucose 81 mg/dL 70-99 Not Available [facility] ([facility] [place] [place] [facility] [address] [facility], [place], [address], 01/30/2023 08:11:42 01/30/20 23 01/30/2023 COMP. METAB OLIC PANEL (14) BUN 9 mg/dL 6-24 Not Available [facility] ([facility] [place] [place] [facility] [address] [facility], [place], [address], 01/30/2023 08:11:42 01/30/20 23 01/30/2023 COMP. METAB OLIC PANEL (14) creatinine 0.80 mg/dL 0.76-1 .27 Not Available [facility] ([facility] [place] [facility]) [address] [facility], [place], [address], 01/30/2023 08:11:42 01/30/20 23 01/30/2023 COMP. METAB OLIC PANEL (14) eGFR 102 mL/mi n/1.7 3 >59 Not Available [facility] ([facility] [place] [facility] [address] [facility], [place], [address], 01/30/2023 08:11:42 01/30/20 23 01/30/2023 COMP. METAB OLIC PANEL (14) BUN/creatini ne ratio 11 9-20 Not Available [facility] ([facility] [place] [place] [facility] [address] [facility], [place], [address], 01/30/2023 08:11:42 01/30/20 23 01/30/2023 COMP. METAB OLIC PANEL (14) sodium 137 mmol/ L 134-14 4 Not Available [facility] ([facility] [place] [place] [facility]) [address] [facility], [place], [address], 01/30/2023 08:11:42 01/30/20 23 01/30/2023 COMP. METAB OLIC PANEL (14) potassium 4.4 mmol/ L 3.5-5. 2 Not Available [facility] ([facility] [place] [place] [facility] [address] [facility], [place], [address], 01/30/2023 08:11:42 01/30/20 23 01/30/2023 COMP. METAB OLIC PANEL (14) chloride 99 mmol/ L 96-106 Not Available [facility] ([facility] [place] [place] [facility] [address] [facility], [place], [address], 01/30/2023 08:11:42 01/30/20 23 01/30/2023 COMP. METAB OLIC PANEL (14) carbon dioxide, total 24 mmol/ L 20-29 Not Available [facility] ([facility] [place] [place] [facility] [address] [facility], [place], [address], 01/30/2023 08:11:42 01/30/20 23 01/30/2023 COMP. METAB OLIC PANEL (14) calcium 8.9 mg/dL 8.7-10 .2 Not Available [facility] ([facility] [place] [place] [facility] [address] [facility], [place], [address], 01/30/2023 08:11:42 01/30/20 23 01/30/2023 COMP. METAB OLIC PANEL (14) protein, total 6.9 g/dL 6.0-8. 5 Not Available [facility] ([facility] [place] [place] [facility] [address] [facility], [place], [address], 01/30/2023 08:11:42 01/30/20 23 01/30/2023 COMP. METAB OLIC PANEL (14) albumin 4.3 g/dL 3.8-4. 9 Ple ase note refer ence sammy trent e Not Available [facility] ([facility] [place] [place] [facility] [address] [facility] [place], [address], 01/30/2023 08:11:42 01/30/20 23 01/30/2023 COMP. METAB OLIC PANEL (14) globulin, total 2.6 g/dL 1.5-4. 5 Not Available [facility] ([facility] [place] [facility] [address] [facility] [place], [address], 01/30/2023 08:11:42 01/30/20 23 01/30/2023 COMP. METAB OLIC PANEL (14) A/G ratio 1.7 1.2-2. 2 Not Available [facility] ([facility] [place] [place] [facility] [address] [facility] [place], [address], 01/30/2023 08:11:42 01/30/20 23 01/30/2023 COMP. METAB OLIC PANEL (14) bilirubin, total 0.3 mg/dL 0.0-1. 2 Not Available [facility] ([facility] [place] [place] [facility] [address] [facility] [place], [address], 01/30/2023 08:11:42 01/30/20 23 01/30/2023 COMP. METAB OLIC PANEL (14) alkaline phosphatase 91 IU/L 44-121 Not Available [facility] ([facility] [place] [place] [facility] [address] [facility] [place], [address], 01/30/2023 08:11:42 01/30/20 23 01/30/2023 COMP. METAB OLIC PANEL (14) AST (SGOT) 16 IU/L 0-40 Not Available [facility] ([facility] [place] [place] [facility] [address] [facility] [place], [address], 01/30/2023 08:11:42 01/30/20 23 01/30/2023 COMP. METAB OLIC PANEL (14) ALT (SGPT) 18 IU/L 0-44 Not Available [facility] ([facility] [place] [place] [facility] [address] [facility] [place], [address], 01/30/2023 08:11:42 01/30/20 23 01/30/2023 LIPID PANEL cholesterol, total 182 mg/dL 100-19 9 Not Available [facility] ([facility] [place] [place] [facility] [address] [facility] [place], [address], 01/30/2023 08:11:43 01/30/20 23 01/30/2023 LIPID PANEL triglyceride s 128 mg/dL 0-149 Not Available [facility] ([facility] [place] [place] [facility] [address] [facility] [place], [address], 01/30/2023 08:11:43 01/30/20 23 01/30/2023 LIPID PANEL HDL cholesterol 37 mg/dL >39 below low normal Not Available [facility] ([facility] [place] [place] [facility]) [address] [place], [address], 01/30/2023 08:11:43 01/30/20 23 01/30/2023 LIPID PANEL VLDL cholesterol keyana 23 mg/dL 5-40 Not Available [facility] ([facility] [place] [facility]) [address] [place], [address], 01/30/2023 08:11:43 01/30/20 23 01/30/2023 LIPID PANEL LDL chol calc ([facility]) 122 mg/dL 0-99 above high normal Not Available [facility] ([facility] [place] [facility] [address] [place], [address], 01/30/2023 08:11:43 01/30/2001/30/2023 LIPID PANEL comment: ORDNANCE OFFICER Not Available [facility] ([facility] [place] [place] [facility] [address] [facility], [place], [address], 01/30/2023 08:11:43 01/30/2001/30/2023 PT AND PTT INR 1.1 0.9-1. 2 Refer ence inter dorota is for non-a ntico agula jared patie nts. Sugge sted INR thera peuti c range for Vitam in K antag onist thera py: Stand sloan Dose (mode rate inten sity thera peuti c range ): 2.0 - 3.0 Highe r inten sity thera peuti c range 2.5 - 3.5 Not Available [facility] ([facility] [place] [place] [facility]) [address] [place], [address], 01/30/2023 08:11:43 01/30/20 23 01/30/2023 PT AND PTT prothrombin time 10.9 sec 9.1-12 .0 Not Available [facility] ([facility]) [address] [place], [address], 01/30/2023 08:11:43 01/30/20 23 01/30/2023 PT AND PTT APTT 32 sec 24-33 This test has not been valid ated for monit oring unfra ction ated hepar in thera py. aPTT- based thera peuti c range s for unfra ction ated hepar in thera py have not been estab michelle lyons For gener al guide lines on Hepar in monit ori , refer to the [facility] Direc tory of Helen enciso. Not Available [facility] ([facility] [place] [place] [facility] [address] [facility], [place], [address], 01/30/2023 08:11:43 01/30/20 23 01/30/2023 CK, TOTAL creatine kinase,total 108 U/L 41-331 Not Available [facility] ([facility]) [address] [place], [address], 01/30/2023 08:11:44 01/30/20 23 01/30/2023 HEMOG LOBIN A1C hemoglobin A1C 5.6 % 4.8-5. 6 Predi abete s: 5.7 - 6.4 Diabe chente: >6.4 Glyce sj contr ol for adult s with diabe chente: <7.0 Not Available [facility] ([facility]) [address] [place], [address], 01/30/2023 08:11:44 01/30/2001/30/2023 TSH TSH 1.470 uIU/m L 0.450- 4.500 Not Available [facility] ([facility]) [address] [place], [address], 01/30/2023 08:11:45 11/08/19 25 11/08/2024 TSH+F REE T4 TSH 1.810 uIU/m L 0.450- 4.500 normal Not Available [facility] ([facility]) [address] [place], [address], 11/08/2024 12:12:42 11/08/19 25 11/08/2024 TSH+F REE T4 T4,free(dire ct) 1.07 NG/dL 0.82-1 .77 normal Not Available [facility] ([facility] [address] [place], [address], 11/08/2024 12:12:42 11/08/19 25 11/08/2024 CBC WITH DIFFE RENTI AL/PL ATELE T WBC 7.6 x10e3 /uL 3.4-10 .8 normal Not Available [facility] ([facility] [address] [place], [address], 11/08/2024 12:12:42 11/08/19 25 11/08/2024 CBC WITH DIFFE RENTI AL/PL ATELE T RBC 5.26 x10e6 /uL 4.14-5 .80 normal Not Available [facility] ([facility] [address] [place], [address], 11/08/2024 12:12:42 11/08/19 25 11/08/2024 CBC WITH DIFFE RENTI AL/PL ATELE T hemoglobin 15.7 g/dL 13.0-1 7.7 normal Not Available [facility] ([facility] [address] [place], [address], 11/08/2024 12:12:42 11/08/19 25 11/08/2024 CBC WITH DIFFE RENTI AL/PL ATELE T hematocrit 47.9 % 37.5-5 1.0 normal Not Available [facility] ([facility] [address] [place], [address], 11/08/2024 12:12:42 11/08/19 25 11/08/2024 CBC WITH DIFFE RENTI AL/PL ATELE T MCV 91 fL 79-97 normal Not Available [facility] ([facility] [address] [place], [address], 11/08/2024 12:12:42 11/08/19 25 11/08/2024 CBC WITH DIFFE RENTI AL/PL ATELE T MCH 29.8 pg 26.6-3 3.0 normal Not Available [facility] ([facility] [address] [place], [address], 11/08/2024 12:12:42 11/08/19 25 11/08/2024 CBC WITH DIFFE RENTI AL/PL ATELE T MCHC 32.8 g/dL 31.5-3 5.7 normal Not Available [facility] ([facility] [address] [place], [address], 11/08/2024 12:12:42 11/08/19 25 11/08/2024 CBC WITH DIFFE RENTI AL/PL ATELE T RDW 12.9 % 11.6-1 5.4 Not Available [facility] ([facility] [address] [facility], [place], [address], 11/08/2024 12:12:42 11/08/19 25 11/08/2024 CBC WITH DIFFE RENTI AL/PL ATELE T platelets 147 x10e3 /uL 150-45 0 below low normal Not Available [facility] ([facility] [address] [place], [address], 11/08/2024 12:12:42 11/08/19 25 11/08/2024 CBC WITH DIFFE RENTI AL/PL ATELE T neutrophils 63 % not estab. normal Not Available [facility] ([facility] [address] [place], [address], 11/08/2024 12:12:42 11/08/19 25 11/08/2024 CBC WITH DIFFE RENTI AL/PL ATELE T lymphs 25 % not estab. normal Not Available [facility] ([facility] [address] [place], [address], 11/08/2024 12:12:42 11/08/19 25 11/08/2024 CBC WITH DIFFE RENTI AL/PL ATELE T monocytes 8 % not estab. normal Not Available [facility] ([facility] [address] [place], [address], 11/08/2024 12:12:42 11/08/19 25 11/08/2024 CBC WITH DIFFE RENTI AL/PL ATELE T eos 3 % not estab. normal Not Available [facility] ([facility] [address] [place], [address], 11/08/2024 12:12:42 11/08/19 25 11/08/2024 CBC WITH DIFFE RENTI AL/PL ATELE T basos 1 % not estab. normal Not Available [facility] ([facility] [address] [place], [address], 11/08/2024 12:12:42 11/08/19 25 11/08/2024 CBC WITH DIFFE RENTI AL/PL ATELE T immature cells ORDNANCE OFFICER Not Available [facility] ([facility] [address] [place], [address], 11/08/2024 12:12:42 11/08/19 25 11/08/2024 CBC WITH DIFFE RENTI AL/PL ATELE T neutrophils (absolute) 4.8 x10e3 /uL 1.4-7. 0 normal Not Available [facility] ([facility] [address] [place], [address], 11/08/2024 12:12:42 11/08/19 25 11/08/2024 CBC WITH DIFFE RENTI AL/PL ATELE T lymphs (absolute) 1.9 x10e3 /uL 0.7-3. 1 normal Not Available [facility] ([facility] [address] [place], [address], 11/08/2024 12:12:42 11/08/19 25 11/08/2024 CBC WITH DIFFE RENTI AL/PL ATELE T monocytes(ab solute) 0.6 x10e3 /uL 0.1-0. 9 normal Not Available [facility] ([facility] [address] [facility], [place], [address], 11/08/2024 12:12:42 11/08/19 25 11/08/2024 CBC WITH DIFFE RENTI AL/PL ATELE T eos (absolute) 0.3 x10e3 /uL 0.0-0. 4 normal Not Available [facility] ([facility] [address] [place], [address], 11/08/2024 12:12:42 11/08/19 25 11/08/2024 CBC WITH DIFFE RENTI AL/PL ATELE T baso (absolute) 0.1 x10e3 /uL 0.0-0. 2 normal Not Available [facility] ([facility] [address] [facility], [place], [address], 11/08/2024 12:12:42 11/08/19 25 11/08/2024 CBC WITH DIFFE RENTI AL/PL ATELE T immature granulocytes 0 % not estab. Not Available [facility] ([facility] [address] [place], [address], 11/08/2024 12:12:42 11/08/19 25 11/08/2024 CBC WITH DIFFE RENTI AL/PL ATELE T immature grans (abs) 0.0 x10e3 /uL 0.0-0. 1 Not Available [facility] ([facility] [address] [place], [address], 11/08/2024 12:12:42 11/08/19 25 11/08/2024 CBC WITH DIFFE RENTI AL/PL ATELE T NRBC ORDNANCE OFFICER Not Available [facility] ([facility] [address] [place], [address], 11/08/2024 12:12:42 11/08/19 25 11/08/2024 CBC WITH DIFFE RACH AL/CHETAN Alvares hematology comments: ORDNANCE OFFICER Not Available [facility] ([facility] [address] [facility], [place], [address], 11/08/2024 12:12:42 11/08/19 25 11/08/2024 COMP. METAB OLIC PANEL (14) glucose 81 mg/dL 70-99 normal Not Available [facility] ([facility] [place] [place] [facility] [address] [facility], [place], [address], 11/08/2024 12:12:43 11/08/19 25 11/08/2024 COMP. METAB OLIC PANEL (14) BUN 10 mg/dL 8-27 normal Not Available [facility] ([facility] [place] [place] [facility] [address] [facility], [place], [address], 11/08/2024 12:12:43 11/08/19 25 11/08/2024 COMP. METAB OLIC PANEL (14) creatinine 0.82 mg/dL 0.76-1 .27 normal Not Available [facility] ([facility] [place] [place] [facility] [address] [facility], [place], [address], 11/08/2024 12:12:43 11/08/19 25 11/08/2024 COMP. METAB OLIC PANEL (14) eGFR 100 mL/mi n/1.7 3 >59 normal Not Available [facility] ([facility] [place] [place] [facility] [address] [facility], [place], [address], 11/08/2024 12:12:43 11/08/19 25 11/08/2024 COMP. METAB OLIC PANEL (14) BUN/creatini ne ratio 12 10-24 normal Not Available [facility] ([facility] [place] [place] [facility] [address] [facility], [place], [address], 11/08/2024 12:12:43 11/08/19 25 11/08/2024 COMP. METAB OLIC PANEL (14) sodium 139 mmol/ L 134-14 4 normal Not Available [facility] ([facility] [place] [place] [facility] [address] [facility] [place], [address], 11/08/2024 12:12:43 11/08/19 25 11/08/2024 COMP. METAB OLIC PANEL (14) potassium 4.4 mmol/ L 3.5-5. 2 normal Not Available [facility] ([facility] [place] [place] [facility] [address] [facility] [place], [address], 11/08/2024 12:12:43 11/08/19 25 11/08/2024 COMP. METAB OLIC PANEL (14) chloride 102 mmol/ L 96-106 normal Not Available [facility] ([facility] [place] [place] [facility] [address] [facility] [place], [address], 11/08/2024 12:12:43 11/08/19 25 11/08/2024 COMP. METAB OLIC PANEL (14) carbon dioxide, total 23 mmol/ L 20-29 normal Not Available [facility] ([facility] [place] [place] [facility] [address] [facility] [place], [address], 11/08/2024 12:12:43 11/08/19 25 11/08/2024 COMP. METAB OLIC PANEL (14) calcium 9.1 mg/dL 8.6-10 .2 normal Not Available [facility] ([facility] [place] [place] [facility] [address] [place], [address], 11/08/2024 12:12:43 11/08/19 25 11/08/2024 COMP. METAB OLIC PANEL (14) protein, total 6.7 g/dL 6.0-8. 5 normal Not Available [facility] ([facility] [place] [place] [facility] [address] [facility] [place], [address], 11/08/2024 12:12:43 11/08/19 25 11/08/2024 COMP. METAB OLIC PANEL (14) albumin 4.2 g/dL 3.9-4. 9 normal Not Available [facility] ([facility] [place] [place] [facility] [address] [facility] [place], [address], 11/08/2024 12:12:43 11/08/19 25 11/08/2024 COMP. METAB OLIC PANEL (14) globulin, total 2.5 g/dL 1.5-4. 5 Not Available [facility] ([facility] [place] [place] [facility] [address] [facility] [place], [address], 11/08/2024 12:12:43 11/08/19 25 11/08/2024 COMP. METAB OLIC PANEL (14) bilirubin, total 0.4 mg/dL 0.0-1. 2 normal Not Available [facility] ([facility] [place] [place] [facility] [address] [facility] [place], [address], 11/08/2024 12:12:43 11/08/19 25 11/08/2024 COMP. METAB OLIC PANEL (14) alkaline phosphatase 117 IU/L 44-121 normal Not Available [facility] ([facility] [place] [place] [facility] [address] [place], [address], 11/08/2024 12:12:43 11/08/19 25 11/08/2024 COMP. METAB OLIC PANEL (14) AST (SGOT) 15 IU/L 0-40 normal Not Available [facility] ([facility] [place] [place] [facility] [address] [place], [address], 11/08/2024 12:12:43 11/08/19 25 11/08/2024 COMP. METAB OLIC PANEL (14) ALT (SGPT) 19 IU/L 0-44 normal Not Available [facility] ([facility] [place] [place] [facility] [address] [place], [address], 11/08/2024 12:12:43 11/08/19 25 11/08/2024 LIPID PANEL cholesterol, total 117 mg/dL 100-19 9 normal Not Available [facility] ([facility] [place] [place] [facility] [address] [place], [address], 11/08/2024 12:12:44 11/08/19 25 11/08/2024 LIPID PANEL triglyceride s 102 mg/dL 0-149 normal Not Available [facility] ([facility] [place] [place] [facility] [address] [place], [address], 11/08/2024 12:12:44 11/08/19 25 11/08/2024 LIPID PANEL HDL cholesterol 33 mg/dL >39 below low normal Not Available [facility] ([facility] [place] [place] [facility] [address] [place], [address], 11/08/2024 12:12:44 11/08/19 25 11/08/2024 LIPID PANEL VLDL cholesterol keyana 19 mg/dL 5-40 Not Available [facility] ([facility] [place] [place] [facility] [address] [place], [address], 11/08/2024 12:12:44 11/08/19 25 11/08/2024 LIPID PANEL LDL chol calc ([facility]) 65 mg/dL 0-99 Not Available [facility] ([facility] [place] [place] [facility] [address] [place], [address], 11/08/2024 12:12:44 11/08/19 25 11/08/2024 LIPID PANEL LDL calc comment: ORDNANCE OFFICER Not Available [facility] ([facility] [place] [place] [facility] [address] [place], [address], 11/08/2024 12:12:44 11/08/19 25 11/08/2024 HEMOG LOBIN A1C hemoglobin A1C 5.8 % 4.8-5. 6 above high normal Predi abete s: 5.7 - 6.4 Diabe chente: >6.4 Glyce sj contr ol for adult s with diabe chente: <7.0 Not Available [facility] ([facility] [place] [place] [facility] [address] [place], [address], 11/08/2024 12:12:44 11/08/19 25 11/08/2024 B-TYP E NATRI URETI C PEPTI DE B-type natriuretic peptide 25.7 pg/mL 0.0-10 0.0 Sieme ns AD[facility]IA [facility] XP metho dolog y Not Available [facility] ([facility] [place] [place] [facility] [address] [facility], [place], [address], 11/08/2024 12:12:45 02/05/20 23 02/04/2023 US, duple x, venou s, lower extre mity, compl ete No observ ation record ed. [facility] [address], [place], [place], [address], 02/12/2023 13:24:52 07/03/20 23 07/03/2023 elect rocar diogr am No observ ation record ed. [email or web address], [address], 07/03/2023 10:35:14 07/03/20 23 07/03/2023 XR, chest , 1 view No observ ation record ed. [facility] [address], [place], [address], 07/03/2023 15:19:05 07/03/20 23 07/03/2023 elect rocar diogr am No observ ation record ed. [email or web address] [place] [address], [address], 07/08/2023 11:48:17 07/16/20 23 07/15/2023 US, doppl er echoc ardio gram No observ ation record ed. [facility] [address], [place], [address], 07/16/2023 10:49:17 07/16/20 23 07/15/2023 cardi ac stres s test No observ ation record ed. [facility] [address], [place], [address], 07/16/2023 10:47:45 07/16/20 23 07/15/2023 NM, myoca rdial perfu cierra scan, w/ stres s No observ ation record ed. [facility] [address], [place], [address], 07/16/2023 10:47:20 11/10/19 24 11/10/2023 arter ial study , lower extre mity, compl ete No observ ation record ed. [facility] [address], [place], [address], 11/12/2023 08:57:50 12/02/19 24 12/01/2023 LDCT, chest , for lung cance r scree darcy No observ ation record ed. [facility] [address], [place], [place], [address], 12/10/2023 12:43:13 06/23/20 24 06/22/2024 CT, chest , w/o contr ast No observ ation record ed. [facility] [address], [place], [address], 06/23/2024 10:52:46 06/23/20 24 06/22/2024 stres s echoc ardio gram with doppl er color flow (PROC ) No observ ation record ed. [facility] [address], [place], [place], [address], 06/23/2024 11:55:20 Result Notes None recorded. Problems Name Problem SNOMED Code Status Onset Date Resolution Date Notes Provider Name and Address Organization Details Recorded Time Venous stasis edema of bilateral lower limbs 5808992628416 9106 Active 2022 Regis Molina, SENIOR WEB ARCHITECT [address], [place], [address] , [place] - [facility] 3 14:55:49 Pain in both feet 8438400993038 9102 Active 2022 Regis Molina, SENIOR WEB ARCHITECT [address], [place], [address] , [place] - [facility] 3 15:05:36 Morbid obesity 004655653 Active 2022 Donna Flores, SENIOR WEB ARCHITECT [address], [place], [address] , [place] - [facility] 5 08:36:09 Venous insufficie ncy of leg 310124300 Active 2022 Regis Rochaing, SENIOR WEB ARCHITECT [address], [place], [address] , [place] - [facility] 3 11:21:02 Chronic obstructiv e pulmonary disease 56503018 Active Ana Castleler [place], [place] - [facility] 4 16:50:01 Sleep apnea 15758395 Active Ana Jamie [place], [place] - [facility] 4 16:53:12 Edema of lower extremity 603002157 Active Donna Flores, SENIOR WEB ARCHITECT [address], [place], [address] , [place] - [facility] 5 08:36:06 Hyperchole sterolemia 96042887 Active Donna Flores, SENIOR WEB ARCHITECT [address], [place], [address] , [place] - [facility] 5 08:36:02 Tobacco dependence caused by cigarettes 7133598715020 9107 Active Ana Castleler null, [place] - [facility] 5 08:04:56 Peripheral venous insufficie ncy 87710156 Active Donna Flores, SENIOR WEB ARCHITECT [address], [place], [address] , [place] - [facility] 5 08:36:15 Increased blood pressure 83686123 Active Ana Ayala [place], [place] - [facility] 5 08:04:56 Hemosidero sis 79395261 Active Ana Castleler null, [place] - [facility] 5 08:04:56 Problem Notes None recorded. Procedures Surgical History Date Name Laterality Status Provider Name and Address Organization Details Recorded Time procedure on ligament completed Ana Ayala [place] - [facility] 01/29/2023 14:07:17 Imaging Results None recorded. Procedure [...] Updated DateTime 5 180.34 cm 43 kg/m2 232744. 45 g 84 /min 94 % 94 % 18 /min 118 mm[Hg] 72 mm[Hg] Ana Ayala [place] - [facility] 08:10:07 Date Recorded Body height Body mass index (BMI) Body weight Body temperature Heart rate Oxygen saturation Oxygen saturation in Arterial blood by Pulse oximetry Respiratory rate Systolic blood pressure Diastolic blood pressure Provider Name and Address Organization Details Last Updated DateTime 3 180.34 cm 45.7 kg/m2 415548. 3 g 97.5 [degF] 71 /min 94 % 94 % 20 /min 136 mm[Hg] 80 mm[Hg] Ana Ayala [facility] 3 14:02:44 Date Recorded Body height Body mass index (BMI) Body weight Body temperature Heart rate Oxygen saturation Oxygen saturation in Arterial blood by Pulse oximetry Respiratory rate Systolic blood pressure Diastolic blood pressure Provider Name and Address Organization Details Last Updated DateTime 4 180.34 cm 44.1 kg/m2 051895. 89 g 98.1 [degF] 98 /min 94 % 94 % 20 /min 130 mm[Hg] 80 mm[Hg] Ana Ayala [place] - [facility] 4 16:47:43 Date Recorded Body height Body mass index (BMI) Body weight Body temperature Heart rate Oxygen saturation Oxygen saturation in Arterial blood by Pulse oximetry Respiratory rate Systolic blood pressure Diastolic blood pressure Provider Name and Address Organization Details Last Updated DateTime 3 180.34 cm 45.1 kg/m2 969359. 44 g 98 [degF] 87 /min 93 % 93 % 18 /min 138 mm[Hg] 84 mm[Hg] Ana Ayala [place] - [facility] 3 10:07:14 Social History Question Answer Notes LastModified by Organizat ion Details LastModified Time Tobacco Smoking Status Current Every Day Smoker [facility] 01/29/2023 14:06:08 Do You Have An [...] Or The Highest Degree You Have Received? [id number] Information not available 01/29/2023 Have There Been Any Changes To Your Family Or Social Situation? No Information no t available 01/29/2023 What Is The Fluoride Status Of Your Home? Fluoridated Information not available 01/29/2023 Have You Recently Or Are You Planning To Travel To An Area With Zika Virus? No Information not available 01/29/2023 Do You Have A Medical Power Of Chemical Dependency Nurse? No Information not available 01/29/2023 What Was [...] Diseases N Kidney Stones N Hyperthyroidism N Rheumatoid arthritis N Blood Transfusion N Erectile Dysfunction N amputation N Colonoscopy N Skin Lesions N COPD N Depression N Pneumonia N Incontinence N Murmur N Edema N Alzheimer's Disease N Migraine Headaches N Tobacco Abuse N Anxiety Disorder N Muscle, Joint, or Bone Problems N Hemorrhoids N Obesity N Vision or Eye Problems N Restless Leg Syndrome N Arthritis N Infertility N Polyps N Carpal Tunnel N Mental Disorder N Acid Reflux (GERD) N Cancer N Stroke N Varicosities N Tendonitis N Crohn's Disease N Hypercholesterolemia N Skin Cancer N Fibromyalgia N Headaches N Anal Fissure N Irritable Bowel Syndrome [...] colitis N Cerebrovascular Disease N Depression N Guillain-[place] N Sleep Apnea N Aneurysm N Bronchitis N Heart Disease N Suicidal Ideation N Pre-Eclampsia N Hypertension N Osteoporosis N Past Encounters Encounter ID Performer Location Encounter Start Date Encounter Closed Date Diagnosis/Indication Diagnosis SNOMED-CT Code Diagnosis ICD10 Code Diagnosis Note [id number] Regis Molina APRN [address] [address] 01/29/2023 13:38:35 01/29/2023 15:27:43 Body mass index 40+ - severely obese 928546134 Z68.42 Morbid obesity 652353335 E66.01 Pain in both feet 344035 1147 9216620 M79.671 M79.672 Venous sta sis edema of bilateral lower limbs 8336137264 4592818 I87.2 physical exam of bilateral lower legs highly suggestive of venous insufficie uty [id number] Donna Flores [address] [address] 07/03/2023 09:56:32 07/03/2023 10:23:25 Pain in both feet 5865076066 4988486 M79.[address] harper for eval dain will see pt as soon as he can get to office Dyspnea 093233402 R06.00 Intermitte nt claudication 06131075 I73.9 [id number] Donna Flores [address] [address] 04/26/2024 16:34:08 04/26/2024 17:01:24 Pain of ear 540452568 H92.09 bug was removed prior to appointmen t [id number] Donna Flores [address] [address] 11/07/2024 07:56:47 11/07/2024 08:53:02 Morbid obesity 092928198 E66.01 Severe obesity 592218608 1 9104 E66.813 E66.01 Z68.41 43 Peripheral venous insufficiency 34680488 I87.2 Hypercholesterolemia 136 69492 E78.00 Edema of l ower extremity 401854711 R60.0 Onychomyco sis of toenails 721377359 B35.1 Health Concerns Section Related Observation LastModified by Organization Detai ls LastModified Time None Recorded Concern Status LastModified by Organization Details LastModified Time None Recorded Advance Directives Directive N: Payers Insurance Date Sequence Insurance Name Policy Number Policy Henry Covered Member ID Henry Member ID Guarantor Name 12/15/2024 [place] [id number] (MEDICAID) Santhosh Gutierrez [id number] Santhosh Gutierrez 12/15/2024 1 [employer] [facility] (MEDICAID [facility] [place] Santhosh Gutierrez [id number] Santhosh Gutierrez Notes Date Note Type Note Provider Name and Address Organization Details Recorded Time 01/29/2023 text/html 57 yr old male presents with lower leg discoloration and feet numbness/pain. He states it has been going on for years and wants to get it checked out. Venous Insufficiency- Onset was years ago. just got insurance and wants to get them check out- Symptoms described as bilateral ankle edema (right worse than left) discoloration, hair loss, and foot pain- Aggravating factors: prolonged standing and prolonged walking- Alleviating factors: rest, ETOH use- Negative ROS: No chest pain, dyspnea, fever, orthopnea, skin wound- Associated medical history: none- Associated social history: tobacco use, alcohol use- Associated sexual history: none Regis Molina, RAMIN [address], [place], [address], [facility] - [facility] 01/30/2023 00:24:34 07/03/2023 text/html 58 yr old male presents for bilateral feet pain and discoloration of legs. His toenails are cracking and he has less feeling in his feet. pt states when he walks the pain and numbness is almost unbearable he has to take freq rest periods but while sitting the pain improves. smoker and sister and mother has had mi Donna SuarezRAMIN rivera [address], [place], [address], [place] - [facility] 07/03/2023 10:33:02 04/26/2024 text/html 59 yr old male presents to have his right ear checked out. He had a bug fly in it and it came back out. The right ear is sore now. Donna Flores APRN [address], [place], [address], [facility] - [facility] 04/26/2024 17:14:57 11/07/2024 text/html 59 yr old male presents for lab work. hx of edema in legs,hypercholester olemia,peripheral venous insufficiency,morbi d obesity Donna FloresRAMIN [address], [place], [address], [facility] - [facility] 11/07/2024 09:25:46
== END 2024-12-28 23:59 | disposition home or self-care (01) ==
LOC: RT 12:57
PROVIDERS: PCP Nurse Practitioner Family; Visit Provider Internal Medicine Pulmonary Disease
DX: R06.02 Shortness of breath (principal)
CPT/HCPCS: 94618